=== PATIENT | female | born 1995 | race Caucasian/White ===

== ENCOUNTER 2023-08-01 11:03 | Emergency (ER) | payer OTHER, SELFPAY ==
[2023-08-01 11:14] VITALS: BP 109/89; PULSE 118; RESP 20; TEMP 36.4; O2SAT 98
--- NOTE | 2023-08-01 14:17 | ED.GENADULT ---
HPI - General Adult General Chief complaint: Unspecified Stated complaint: hemorrhoids Time Seen by Provider: 08/01/23 12:08 History of Present Illness HPI narrative: Patient is a 28-year-old female who presents ER with concerns for hemorrhoids. Patient reports she had sudden pain in her rectum last night. She is straining try to have bowel movement but cannot. She has had hemorrhoids in the past and feels this is the same. Denies any previous constipation. No fevers chills or sweats. No abdominal discomfort. Review of Systems Cardiovascular: Cardiovascular: Reports no additional cardiovascular complaints Respiratory: Respiratory: Reports no additional respiratory complaints Gastrointestinal: Gastrointestinal: Denies nausea and Denies vomiting Comments: Hemorrhoids and rectal discomfort PMFSH Past Medical History Medical History (Updated 08/01/23 @ 18:34 by Eliazar Alcantara MD) Hemorrhoids Surgical History Surgical History (Updated 08/01/23 @ 18:34 by Eliazar Alcantara MD) No history of previous surgery Exam Narrative: GENERAL: Well-appearing, well-nourished, and in no acute distress. HEAD: Normocephalic, atraumatic. ENT: Mucous membranes moist. CHEST: Clear to auscultation. No respiratory distress. HEART: Regular rate and rhythm. Normal peripheral pulses. ABDOMEN: Soft, nontender, nondistended. Adherent stool to the gluteal cleft. No thrombosed or bleeding external hemorrhoids. Firm stool ball on digital rectal exam. EXTREMITIES: Normal range of motion. No edema. SKIN: Warm, dry, no rash. NEURO: Alert and oriented x3. PSYCH: Normal mood and affect. Course Course Emergency Course: Patient received an enema and then had a large bowel movement and feels improved. Vital Signs Vital signs: Vital Signs Temperature 97.6 F 08/01/23 11:14 Pulse Rate 118 H 08/01/23 11:14 Respiratory Rate 20 08/01/23 11:14 Blood Pressure 109/89 08/01/23 11:14 Pulse Oximetry 98 08/01/23 11:14 Oxygen Delivery Room Air 08/01/23 11:14 Temperature 97.6 F 08/01/23 11:14 Pulse Rate 118 H 08/01/23 11:14 Respiratory Rate 20 08/01/23 11:14 Blood Pressure 109/89 08/01/23 11:14 Pulse Oximetry 98 08/01/23 11:14 Oxygen Delivery Room Air 08/01/23 11:14 Medical Decision Making Vital Signs Vital Signs: Vital Signs Temperature 97.6 F 08/01/23 11:14 Pulse Rate 118 H 08/01/23 11:14 Respiratory Rate 20 08/01/23 11:14 Blood Pressure 109/89 08/01/23 11:14 Pulse Oximetry 98 08/01/23 11:14 Oxygen Delivery Room Air 08/01/23 11:14 Temperature 97.6 F 08/01/23 11:14 Pulse Rate 118 H 08/01/23 11:14 Respiratory Rate 08/01/23 11:14 Blood Pressure 109/89 08/01/23 11:14 Pulse Oximetry 98 08/01/23 11:14 Oxygen Delivery Room Air 08/01/23 11:14 Discharge Plan Discharge Clinical Impression: Constipation Patient Disposition: Home, Self-Care Condition: Stable Instructions: Constipation (ED) Additional Instructions: Return to the ER if you have fever over 100.4 ?F, you cannot keep down food or water, you lose consciousness, you have additional concerns. You need to be taking stool softeners to prevent constipation. There is no evidence of hemorrhoids on your exam. Prescriptions: New docusate sodium [Col-Rite] 100 mg capsule 100 mg PO BID Qty: 14 0RF Follow-up/Referrals: PHYSICIAN NOT ON STAFF,NONSTAFF [Primary Care Provider] - 1 Week
== END 2023-08-01 14:40 | disposition home or self-care (01) ==
PROVIDERS: Emergency Provider Emergency Medicine
DX: K59.00 Constipation, unspecified (principal)
CPT/HCPCS: 99283